=== PATIENT | female | born 1950 | race Asian ===

== ENCOUNTER → 2017-12-16 | Outpatient (CLI) | payer BC | END | disposition home or self-care (01) | LOC: MAMMO 12-14 06:58 | PROVIDERS: ATTEND Obstetrics & Gynecology | DX: Z12.31 Encounter for screening mammogram for malignant neoplasm of breast (principal); R92.1 Mammographic calcification found on diagnostic imaging of breast | CPT/HCPCS: 77067 ==

== ENCOUNTER → 2018-12-20 | Outpatient (CLI) | payer BC | END | disposition home or self-care (01) | LOC: MAMMO 07:25 | PROVIDERS: ATTEND Obstetrics & Gynecology | DX: Z12.31 Encounter for screening mammogram for malignant neoplasm of breast (principal) | CPT/HCPCS: 77067 ==

== ENCOUNTER → 2019-01-18 | Outpatient (CLI) | payer BC ==
[2019-01-18 10:17] LABS: EOSINOPHILS % 4.1 % (0.0-5.0); HEMOGLOBIN. 13.1 g/dL (12.0-16.0); MEAN CORPUSCULAR HEMOGLOBIN 30.1 pg (28.0-32.0); MEAN CORPUSCULAR VOLUME 89.8 fL (81.0-99.0); MEAN PLATELET VOLUME 7.9 fl (7.4-10.4); MONOCYTES % 7.9 % (2.0-8.0); PLATELET 180 x1000/uL (130-400); RED BLOOD CELL COUNT 4.34 mill/uL (4.2-5.4); RED CELL DISTRIBUTION WIDTH 13.8 % (11.6-14.6)
[2019-01-18 10:26] LABS: CHLORIDE 107 mEq/L (98-107)
[2019-01-18 10:33] LABS: LDL CHOLESTEROL 50 mg/dL (5-100)
[2019-01-18 10:34] LABS: HDL CHOLESTEROL 62 mg/dL (40-59)
== END | disposition home or self-care (01) ==
LOC: LAB 09:44
PROVIDERS: ATTEND Internal Medicine
DX: E78.00 Pure hypercholesterolemia, unspecified (principal); I10 Essential (primary) hypertension; R73.03 Prediabetes; M25.561 Pain in right knee
CPT/HCPCS: 36415; 82465; 83036; 83718; 83721; 84478

== ENCOUNTER → 2019-06-21 | Outpatient (CLI) | payer BC ==
[2019-06-21 10:25] LABS: BASOPHILS % 1.5 % (0.0-2.0); EOSINOPHILS % 3.3 % (0.0-5.0); HEMATOCRIT. 39.9 % (36.0-48.0); HEMOGLOBIN. 13.3 g/dL (12.0-16.0); LYMPHOCYTES % 23.2 % (20.0-50.0); MEAN CORPUSCULAR VOLUME 89.9 fL (81.0-99.0); MEAN PLATELET VOLUME 7.7 fl (7.4-10.4); MONOCYTES % 7.8 % (2.0-8.0); NEUTROPHILS % 64.2 % (40.0-76.0); PLATELET 191 x1000/uL (130-400); RED BLOOD CELL COUNT 4.43 mill/uL (4.2-5.4); RED CELL DISTRIBUTION WIDTH 14.2 % (11.6-14.6)
[2019-06-21 10:33] LABS: CHLORIDE 106 mEq/L (98-107)
[2019-06-21 10:42] LABS: LDL CHOLESTEROL 58 mg/dL (5-100)
[2019-06-21 10:44] LABS: HDL CHOLESTEROL 73 mg/dL (40-59)
== END | disposition home or self-care (01) ==
LOC: LAB 09:50
PROVIDERS: ATTEND Internal Medicine
DX: I10 Essential (primary) hypertension (principal); E78.00 Pure hypercholesterolemia, unspecified; R73.03 Prediabetes; M25.562 Pain in left knee
CPT/HCPCS: 36415; 80053; 80061; 83036; 83735; 85025

== ENCOUNTER → 2019-10-13 | Outpatient (CLI) | payer OTHER | END | disposition home or self-care (01) | LOC: MRI 07:02 | PROVIDERS: ATTEND Family Medicine Adult Medicine | DX: S63.8X2A Sprain of other part of left wrist and hand, initial encounter (principal); M18.9 Osteoarthritis of first carpometacarpal joint, unspecified; M94.232 Chondromalacia, left wrist; M25.432 Effusion, left wrist; X58.XXXA Exposure to other specified factors, initial encounter; Y93.89 Activity, other specified; Y92.89 Other specified places as the place of occurrence of the external cause; Y99.8 Other external cause status | CPT/HCPCS: 73221 ==

== ENCOUNTER → 2019-11-23 | Outpatient (CLI) | payer BC ==
[2019-11-23 08:41] LABS: BASOPHILS % 1.1 % (0.0-2.0); EOSINOPHILS % 2.5 % (0.0-5.0); HEMATOCRIT. 37.4 % (36.0-48.0); HEMOGLOBIN. 12.5 g/dL (12.0-16.0); LYMPHOCYTES % 20.4 % (20.0-50.0); MEAN CORPUSCULAR HEMOGLOBIN 30.1 pg (28.0-32.0); MEAN CORPUSCULAR VOLUME 90.2 fL (81.0-99.0); MEAN PLATELET VOLUME 7.3 fl (7.4-10.4); MONOCYTES % 7.4 % (2.0-8.0); NEUTROPHILS % 68.6 % (40.0-76.0); PLATELET 176 x1000/uL (130-400); RED BLOOD CELL COUNT 4.15 mill/uL (4.2-5.4)
[2019-11-23 08:57] LABS: CHLORIDE 111 mEq/L (98-107)
[2019-11-23 09:04] LABS: LDL CHOLESTEROL 60 mg/dL (5-100)
[2019-11-23 09:05] LABS: HDL CHOLESTEROL 71 mg/dL (40-59)
== END | disposition home or self-care (01) ==
LOC: LAB 08:07
PROVIDERS: ATTEND Internal Medicine
DX: E78.00 Pure hypercholesterolemia, unspecified (principal); M25.561 Pain in right knee; M25.562 Pain in left knee; R73.03 Prediabetes
CPT/HCPCS: 36415; 80053; 80061; 83036; 85025

== ENCOUNTER → 2020-01-10 | Outpatient (CLI) | payer BC | END | disposition home or self-care (01) | LOC: LAB 08:06 | PROVIDERS: ATTEND Obstetrics & Gynecology | DX: Z20.828 Contact with and (suspected) exposure to other viral communicable diseases (principal) | CPT/HCPCS: C9803; U0003 ==

== ENCOUNTER → 2020-01-12 | Outpatient (CLI) | payer BC | END | disposition home or self-care (01) | LOC: MAMMO 06:40 | PROVIDERS: ATTEND Obstetrics & Gynecology | DX: Z12.31 Encounter for screening mammogram for malignant neoplasm of breast (principal) | CPT/HCPCS: 77067 ==

== ENCOUNTER → 2020-04-10 | Outpatient (CLI) | payer BC ==
[2020-04-10 10:38] LABS: BASOPHILS % 1.2 % (0.0-2.0); HEMATOCRIT. 38.3 % (36.0-48.0); HEMOGLOBIN. 12.6 g/dL (12.0-16.0); LYMPHOCYTES % 20.1 % (20.0-50.0); MEAN CORPUSCULAR HEMOGLOBIN 29.7 pg (28.0-32.0); MEAN CORPUSCULAR VOLUME 89.9 fL (81.0-99.0); MEAN PLATELET VOLUME 7.7 fl (7.4-10.4); MONOCYTES % 7.2 % (2.0-8.0); NEUTROPHILS % 68.5 % (40.0-76.0); PLATELET 180 x1000/uL (130-400); RED BLOOD CELL COUNT 4.26 mill/uL (4.2-5.4)
[2020-04-10 11:03] LABS: CHLORIDE 106 mEq/L (98-107)
[2020-04-10 11:10] LABS: LDL CHOLESTEROL 56 mg/dL (5-100)
[2020-04-10 11:12] LABS: HDL CHOLESTEROL 75 mg/dL (40-59)
== END | disposition home or self-care (01) ==
LOC: LAB 10:11
PROVIDERS: ATTEND Internal Medicine
DX: I10 Essential (primary) hypertension (principal); R73.03 Prediabetes; M25.561 Pain in right knee
CPT/HCPCS: 36415; 80053; 80061; 83036; 85025

== ENCOUNTER → 2020-10-09 | Outpatient (CLI) | payer BC ==
[2020-10-09 10:36] LABS: BASOPHILS % 1.2 % (0.0-2.0); EOSINOPHILS % 5.1 % (0.0-5.0); HEMATOCRIT. 37.7 % (36.0-48.0); HEMOGLOBIN. 12.8 g/dL (12.0-16.0); LYMPHOCYTES % 20.4 % (20.0-50.0); MEAN CORPUSCULAR HEMOGLOBIN 30.4 pg (28.0-32.0); MEAN CORPUSCULAR VOLUME 89.4 fL (81.0-99.0); MEAN PLATELET VOLUME 7.8 fl (7.4-10.4); MONOCYTES % 7.1 % (2.0-8.0); NEUTROPHILS % 66.2 % (40.0-76.0); PLATELET 184 x1000/uL (130-400); RED BLOOD CELL COUNT 4.22 mill/uL (4.2-5.4); RED CELL DISTRIBUTION WIDTH 14.2 % (11.6-14.6)
[2020-10-09 10:37] LABS: CHLORIDE 106 mEq/L (98-107)
[2020-10-09 10:45] LABS: LDL CHOLESTEROL 66 mg/dL (5-100)
[2020-10-09 10:46] LABS: HDL CHOLESTEROL 68 mg/dL (40-59)
== END | disposition home or self-care (01) ==
LOC: LAB 10:07
PROVIDERS: ATTEND Internal Medicine
DX: E78.00 Pure hypercholesterolemia, unspecified (principal); R73.03 Prediabetes; M25.561 Pain in right knee; M25.562 Pain in left knee
CPT/HCPCS: 36415; 80053; 80061; 83036; 85025

== ENCOUNTER → 2021-01-15 | Outpatient (CLI) | payer BC | END | disposition home or self-care (01) | LOC: MAMMO 07:30 | PROVIDERS: ATTEND Obstetrics & Gynecology | DX: Z12.31 Encounter for screening mammogram for malignant neoplasm of breast (principal) | CPT/HCPCS: 77067 ==

== ENCOUNTER → 2021-04-30 | Outpatient (CLI) | payer BC ==
[2021-04-30 11:02] LABS: BASOPHILS % 1.4 % (0.0-2.0); EOSINOPHILS % 6.3 % (0.0-5.0); HEMATOCRIT. 37.4 % (36.0-48.0); HEMOGLOBIN. 12.5 g/dL (12.0-16.0); LYMPHOCYTES % 18.9 % (20.0-50.0); MEAN CORPUSCULAR HEMOGLOBIN 29.9 pg (28.0-32.0); MEAN CORPUSCULAR VOLUME 89.2 fL (81.0-99.0); MEAN PLATELET VOLUME 7.9 fl (7.4-10.4); MONOCYTES % 6.5 % (2.0-8.0); NEUTROPHILS % 66.9 % (40.0-76.0); PLATELET 209 x1000/uL (130-400); RED BLOOD CELL COUNT 4.19 mill/uL (4.2-5.4); RED CELL DISTRIBUTION WIDTH 14.7 % (11.6-14.6)
[2021-04-30 11:23] LABS: CHLORIDE 106 mEq/L (98-107)
[2021-04-30 11:30] LABS: LDL CHOLESTEROL 59 mg/dL (5-100)
[2021-04-30 11:31] LABS: HDL CHOLESTEROL 65 mg/dL (40-59)
== END | disposition home or self-care (01) ==
LOC: LAB 10:28
PROVIDERS: ATTEND Internal Medicine
DX: E78.00 Pure hypercholesterolemia, unspecified (principal); R73.03 Prediabetes; M25.561 Pain in right knee; M25.562 Pain in left knee
CPT/HCPCS: 36415; 80053; 80061; 83036; 85025

== ENCOUNTER → 2021-10-29 | Outpatient (CLI) | payer BC ==
[2021-10-29 09:56] LABS: BASOPHILS % 1.3 % (0.0-2.0); EOSINOPHILS % 5.4 % (0.0-5.0); HEMATOCRIT. 39.4 % (36.0-48.0); HEMOGLOBIN. 13.2 g/dL (12.0-16.0); LYMPHOCYTES % 22.3 % (20.0-50.0); MEAN CORPUSCULAR HEMOGLOBIN 30.2 pg (28.0-32.0); MONOCYTES % 8.8 % (2.0-8.0); NEUTROPHILS % 62.2 % (40.0-76.0); PLATELET 202 x1000/uL (130-400); RED BLOOD CELL COUNT 4.38 mill/uL (4.2-5.4); RED CELL DISTRIBUTION WIDTH 14.3 % (11.6-14.6)
[2021-10-29 10:03] LABS: CHLORIDE 103 mEq/L (98-107)
[2021-10-29 10:12] LABS: HDL CHOLESTEROL 57 mg/dL (40-59); LDL CHOLESTEROL 61 mg/dL (5-100)
== END | disposition home or self-care (01) ==
LOC: LAB 09:30
PROVIDERS: ATTEND Internal Medicine
DX: I10 Essential (primary) hypertension (principal); E78.00 Pure hypercholesterolemia, unspecified; R73.03 Prediabetes; M25.562 Pain in left knee; M25.561 Pain in right knee
CPT/HCPCS: 36415; 80053; 80061; 83036; 85025

== ENCOUNTER → 2021-12-26 | Outpatient (CLI) | payer BC, MEDICARE | END | disposition home or self-care (01) | LOC: CARD 12:16 | PROVIDERS: ATTEND Internal Medicine | DX: Z01.818 Encounter for other preprocedural examination (principal); I10 Essential (primary) hypertension; E66.01 Morbid (severe) obesity due to excess calories | CPT/HCPCS: 93005 ==

== ENCOUNTER → 2022-03-12 | Outpatient (CLI) | payer BC, MEDICARE | END | disposition home or self-care (01) | LOC: MAMMO 06:27 | PROVIDERS: ATTEND Obstetrics & Gynecology | DX: Z12.31 Encounter for screening mammogram for malignant neoplasm of breast (principal) | CPT/HCPCS: 77067 ==

== ENCOUNTER → 2022-06-18 | Outpatient (CLI) | payer BC ==
[2022-06-18 06:48] LABS: CHLORIDE 107 mEq/L (98-107)
[2022-06-18 06:49] LABS: BASOPHILS % 1.4 % (0.0-2.0); LYMPHOCYTES % 25.4 % (20.0-50.0); MEAN CORPUSCULAR HEMOGLOBIN 29.4 pg (28.0-32.0); MEAN CORPUSCULAR VOLUME 88.3 fL (81.0-99.0); MONOCYTES % 7.2 % (2.0-8.0); PLATELET 225 x1000/uL (130-400); RED BLOOD CELL COUNT 4.41 mill/uL (4.2-5.4); RED CELL DISTRIBUTION WIDTH 14.6 % (11.6-14.6)
[2022-06-18 06:54] LABS: HDL CHOLESTEROL 64 mg/dL (40-59); LDL CHOLESTEROL 57 mg/dL (5-100)
== END | disposition home or self-care (01) ==
LOC: LAB 05:58
PROVIDERS: ATTEND Internal Medicine
DX: I10 Essential (primary) hypertension (principal); E78.00 Pure hypercholesterolemia, unspecified; E11.9 Type 2 diabetes mellitus without complications
CPT/HCPCS: 36415; 80053; 80061; 83036; 85025

== ENCOUNTER → 2023-03-12 | Outpatient (CLI) | payer BC ==
[2023-03-12 07:22] LABS: BASOPHILS % 1.1 % (0.0-2.0); EOSINOPHILS % 8.2 % (0.0-5.0); HEMATOCRIT. 38.9 % (36.0-48.0); HEMOGLOBIN. 13.2 g/dL (12.0-16.0); LYMPHOCYTES % 24.6 % (20.0-50.0); MEAN CORPUSCULAR HEMOGLOBIN 30.6 pg (28.0-32.0); MEAN CORPUSCULAR HGB CONC 33.8 g/dL (31.0-37.0); MEAN CORPUSCULAR VOLUME 90.5 fL (81.0-99.0); MEAN PLATELET VOLUME 8.3 fl (7.4-10.4); MONOCYTES % 7.3 % (2.0-8.0); NEUTROPHILS % 58.8 % (40.0-76.0); PLATELET 202 x1000/uL (130-400); RED CELL DISTRIBUTION WIDTH 14.3 % (11.6-14.6); WHITE BLOOD COUNT 8.1 x1000/uL (4.5-11.0)
[2023-03-12 07:59] LABS: ALANINE AMINOTRANSFERASE 19 IU/L (10-49); ALBUMIN 4.3 g/dL (3.2-4.8); ASPARTATE AMINOTRANSFERASE 14 IU/L (<34); BILIRUBIN TOTAL 0.4 mg/dL (0.1-1.0); CARBON DIOXIDE 24 mEq/L (21-32); CHLORIDE 106 mEq/L (98-107); CHOLESTEROL 108 mg/dL (<200); CREATININE 1.7 mg/dL (0.6-1.0); GLUCOSE 96 mg/dL (70-105); HDL CHOLESTEROL 53 mg/dL (>65); LDL CHOLESTEROL 50 mg/dL (5-100); POTASSIUM 4.6 mEq/L (3.5-5.1); PROTEIN TOTAL 7.2 g/dL (6.0-8.3); SODIUM 141 mEq/L (136-145); TRIGLYCERIDE 201 mg/dL (0-150); UREA NITROGEN BLOOD 17 mg/dL (9-23)
== END | disposition home or self-care (01) ==
LOC: LAB 06:30
PROVIDERS: ATTEND Internal Medicine
DX: I10 Essential (primary) hypertension (principal); E78.00 Pure hypercholesterolemia, unspecified; E11.9 Type 2 diabetes mellitus without complications
CPT/HCPCS: 36415; 80053; 80061; 83036; 85025

== ENCOUNTER → 2023-03-17 | Outpatient (CLI) | payer BC | END | disposition home or self-care (01) | LOC: MAMMO 06:31 | PROVIDERS: ATTEND Obstetrics & Gynecology | DX: Z12.31 Encounter for screening mammogram for malignant neoplasm of breast (principal); Z13.820 Encounter for screening for osteoporosis; M81.0 Age-related osteoporosis without current pathological fracture | CPT/HCPCS: 77067; 77080 ==

== ENCOUNTER → 2023-03-17 | Outpatient (CLI) | payer OTHER | END | disposition home or self-care (01) | LOC: MRI 06:15 | DX: M51.37 Other intervertebral disc degeneration, lumbosacral region (principal); M48.07 Spinal stenosis, lumbosacral region; M51.27 Other intervertebral disc displacement, lumbosacral region; M24.28 Disorder of ligament, vertebrae | CPT/HCPCS: 72148 ==

== ENCOUNTER → 2023-04-30 | Outpatient (CLI) | payer OTHER | END | disposition home or self-care (01) | LOC: RAD 08:54 | PROVIDERS: ATTEND Orthopaedic Surgery | DX: M51.37 Other intervertebral disc degeneration, lumbosacral region (principal); M47.817 Spondylosis without myelopathy or radiculopathy, lumbosacral region; M85.88 Other specified disorders of bone density and structure, other site | CPT/HCPCS: 72114 ==

== ENCOUNTER → 2023-05-21 | Outpatient (CLI) | payer BC ==
[2023-05-21 08:09] LABS: CHOLESTEROL 148 mg/dL (<200); HDL CHOLESTEROL 60 mg/dL (>65); LDL CHOLESTEROL 55 mg/dL (5-100); PHOSPHORUS 3.8 mg/dL (2.5-4.9); TRIGLYCERIDE 176 mg/dL (0-150)
[2023-05-21 08:18] LABS: EOSINOPHILS % 5.8 % (0.0-5.0); HEMATOCRIT. 37.9 % (36.0-48.0); HEMOGLOBIN. 12.6 g/dL (12.0-16.0); LYMPHOCYTES % 21.4 % (20.0-50.0); MEAN CORPUSCULAR HEMOGLOBIN 29.6 pg (28.0-32.0); MEAN CORPUSCULAR HGB CONC 33.2 g/dL (31.0-37.0); MEAN CORPUSCULAR VOLUME 89.2 fL (81.0-99.0); MEAN PLATELET VOLUME 8.3 fl (7.4-10.4); MONOCYTES % 6.4 % (2.0-8.0); NEUTROPHILS % 65.4 % (40.0-76.0); PLATELET 183 x1000/uL (130-400); RED BLOOD CELL COUNT 4.25 mill/uL (4.2-5.4); RED CELL DISTRIBUTION WIDTH 13.7 % (11.6-14.6); WHITE BLOOD COUNT 6.2 x1000/uL (4.5-11.0)
[2023-05-21 08:43] LABS: CLARITY URINE CLEAR (CLEAR); COLOR URINE YELLOW (YELLOW); GLUCOSE URINE NEGATIVE (NEGATIVE); KETONES URINE NEGATIVE (NEGATIVE); LEUKOCYTE ESTERASE URINE 2+ (NEGATIVE); NITRITE URINE NEGATIVE (NEGATIVE); OCCULT BLOOD URINE NEGATIVE (NEGATIVE); PH URINE 5.5 (4.5-8.0); PROTEIN URINE NEGATIVE (NEGATIVE); SPECIFIC GRAVITY URINE 1.015 (1.005-1.030); UROBILINOGEN URINE 0.2 E.U./dL (0.2-1.0)
[2023-05-21 08:57] LABS: BACTERIA URINE 1+
[2023-05-21 08:59] LABS: RBC URINE 0-2 /hpf (0-2); SQUAMOUS EPITHELIAL CELL URINE NONE SEEN /lpf (RARE/1+); YEAST URINE NONE SEEN
[2023-05-21 11:56] LABS: ERYTHROCYTE SEDIMENTATION RATE 25 mm/hr (0-30)
[2023-05-22 09:07] LABS: HBSAG SCREEN Negative (Negative); VITAMIN D 25-OH 57.1 ng/mL (30.0-100.0)
[2023-05-22 10:08] LABS: A/G RATIO 0.9 (0.7-1.7); ALBUMIN 3.3 g/dL (2.9-4.4); ALPHA-1-GLOBULIN 0.3 g/dL (0.0-0.4); ALPHA-2-GLOBULIN 0.9 g/dL (0.4-1.0); BETA GLOBULIN 1.1 g/dL (0.7-1.3); GAMMA GLOBULINS 1.3 g/dL (0.4-1.8); GLOBULIN TOTAL 3.6 g/dL (2.2-3.9); M-SPIKE Not Observed g/dL (Not Observed); TOTAL PROTEIN SERUM 6.9 g/dL (6.0-8.5)
[2023-05-23 14:12] LABS: *CREATININE RANDOM URINE 73.6 mg/dL (Not Estab.); MICROALBUMIN RANDOM URINE 11.9 ug/mL (Not Estab.)
== END | disposition home or self-care (01) ==
LOC: LAB 06:28
PROVIDERS: ATTEND Internal Medicine Nephrology
DX: E11.9 Type 2 diabetes mellitus without complications (principal); I10 Essential (primary) hypertension; E78.2 Mixed hyperlipidemia; E03.9 Hypothyroidism, unspecified
CPT/HCPCS: 36415; 80061; 81003; 82043; 82306; 82570; 83735; 83970; 84100; 84155; 84165; 85025; 85651; 86141; 86705; 87340

== ENCOUNTER → 2023-06-05 | Outpatient (CLI) | payer BC | END | disposition home or self-care (01) | LOC: US 06:36 | PROVIDERS: ATTEND Internal Medicine Nephrology | DX: N28.1 Cyst of kidney, acquired (principal); N18.1 Chronic kidney disease, stage 1 | CPT/HCPCS: 76770 ==

== ENCOUNTER → 2023-07-31 | Outpatient (CLI) | payer BC ==
[2023-07-31 07:06] LABS: BASOPHILS % 1.4 % (0.0-2.0); EOSINOPHILS % 7.3 % (0.0-5.0); HEMATOCRIT. 38.4 % (36.0-48.0); HEMOGLOBIN. 12.9 g/dL (12.0-16.0); LYMPHOCYTES % 21.9 % (20.0-50.0); MEAN CORPUSCULAR HEMOGLOBIN 29.9 pg (28.0-32.0); MEAN CORPUSCULAR HGB CONC 33.6 g/dL (31.0-37.0); MEAN CORPUSCULAR VOLUME 88.9 fL (81.0-99.0); NEUTROPHILS % 61.4 % (40.0-76.0); PLATELET 180 x1000/uL (130-400); RED BLOOD CELL COUNT 4.32 mill/uL (4.2-5.4); RED CELL DISTRIBUTION WIDTH 14.1 % (11.6-14.6); WHITE BLOOD COUNT 6.8 x1000/uL (4.5-11.0)
[2023-07-31 07:09] LABS: CLARITY URINE CLEAR (CLEAR); COLOR URINE YELLOW (YELLOW); GLUCOSE URINE NEGATIVE (NEGATIVE); KETONES URINE NEGATIVE (NEGATIVE); LEUKOCYTE ESTERASE URINE 1+ (NEGATIVE); NITRITE URINE NEGATIVE (NEGATIVE); OCCULT BLOOD URINE NEGATIVE (NEGATIVE); PH URINE 5.5 (4.5-8.0); PROTEIN URINE NEGATIVE (NEGATIVE); SPECIFIC GRAVITY URINE 1.016 (1.005-1.030); UROBILINOGEN URINE 0.2 E.U./dL (0.2-1.0)
[2023-07-31 07:31] LABS: BACTERIA URINE 1+; RBC URINE 0-2 /hpf (0-2); SQUAMOUS EPITHELIAL CELL URINE RARE /lpf (RARE/1+); WBC URINE 15-25 /hpf (0-2); YEAST URINE NONE SEEN
[2023-07-31 07:38] LABS: INR 0.9; PARTIAL THROMBOPLASTIN TIME 25.5 sec (23.4-31.0); PROTHROMBIN TIME 10.3 sec (9.6-11.0)
[2023-07-31 07:40] LABS: ALANINE AMINOTRANSFERASE 17 IU/L (10-49); ALBUMIN 4.6 g/dL (3.2-4.8); ASPARTATE AMINOTRANSFERASE 19 IU/L (<34); BILIRUBIN TOTAL 0.5 mg/dL (0.1-1.0); CALCIUM 9.9 mg/dL (8.7-10.4); CARBON DIOXIDE 24 mEq/L (21-32); CHLORIDE 104 mEq/L (98-107); CREATININE 1.2 mg/dL (0.6-1.0); GLUCOSE 118 mg/dL (70-105); POTASSIUM 4.5 mEq/L (3.5-5.1); PROTEIN TOTAL 7.4 g/dL (6.0-8.3); SODIUM 138 mEq/L (136-145); UREA NITROGEN BLOOD 24 mg/dL (9-23)
== END | disposition home or self-care (01) ==
LOC: RAD 06:23
PROVIDERS: ATTEND Orthopaedic Surgery
DX: Z01.818 Encounter for other preprocedural examination (principal)
CPT/HCPCS: 36415; 71046; 80053; 81003; 85025; 87077; 87186; 93005

== ENCOUNTER → 2023-08-31 | Outpatient (CLI) | payer BC | END | disposition home or self-care (01) | LOC: RAD 06:11 | PROVIDERS: ATTEND Specialist | DX: Z01.810 Encounter for preprocedural cardiovascular examination (principal) | CPT/HCPCS: 93306 ==

== ENCOUNTER → 2023-09-17 | Outpatient (CLI) | payer BC ==
[~2023-09-17] MED LIST: REGADENOSON 0.4 MG/5 ML IV ONE
== END | disposition home or self-care (01) ==
LOC: NM 07:17
PROVIDERS: ATTEND Specialist
DX: I10 Essential (primary) hypertension (principal); R07.89 Other chest pain
CPT/HCPCS: 78452; 93017; J2785; A9500

== ENCOUNTER → 2023-10-20 | Outpatient (CLI) | payer BC ==
[2023-10-20 07:17] LABS: CHLORIDE 103 mEq/L (98-107); POTASSIUM 3.9 mEq/L (3.5-5.1); SODIUM 138 mEq/L (136-145)
[2023-10-20 07:18] LABS: CARBON DIOXIDE 22 mEq/L (21-32)
[2023-10-20 07:19] LABS: CALCIUM 10.6 mg/dL (8.7-10.4)
[2023-10-20 07:23] LABS: CREATININE 1.2 mg/dL (0.6-1.0); GLUCOSE 103 mg/dL (70-105)
[2023-10-20 07:24] LABS: LDL CHOLESTEROL 35 mg/dL (5-100); TRIGLYCERIDE 106 mg/dL (0-150); UREA NITROGEN BLOOD 23 mg/dL (9-23)
[2023-10-20 07:25] LABS: ALANINE AMINOTRANSFERASE 23 IU/L (10-49); ALBUMIN 4.7 g/dL (3.2-4.8); ASPARTATE AMINOTRANSFERASE 19 IU/L (<34); CHOLESTEROL 116 mg/dL (<200); HDL CHOLESTEROL 59 mg/dL (>65)
[2023-10-20 07:26] LABS: BILIRUBIN TOTAL 0.5 mg/dL (0.1-1.0); PROTEIN TOTAL 8.1 g/dL (6.0-8.3)
[2023-10-20 11:38] LABS: CLARITY URINE CLEAR (CLEAR); COLOR URINE YELLOW (YELLOW); GLUCOSE URINE NEGATIVE (NEGATIVE); KETONES URINE NEGATIVE (NEGATIVE); LEUKOCYTE ESTERASE URINE 1+ (NEGATIVE); NITRITE URINE NEGATIVE (NEGATIVE); OCCULT BLOOD URINE NEGATIVE (NEGATIVE); PH URINE 5.5 (4.5-8.0); PROTEIN URINE NEGATIVE (NEGATIVE); SPECIFIC GRAVITY URINE 1.016 (1.005-1.030); UROBILINOGEN URINE 0.2 E.U./dL (0.2-1.0)
[2023-10-20 12:17] LABS: SQUAMOUS EPITHELIAL CELL URINE FEW /lpf (RARE/1+)
[2023-10-20 12:18] LABS: BACTERIA URINE TRACE
[2023-10-20 12:24] LABS: RBC URINE NONE SEEN /hpf (0-2); WBC URINE 0-2 /hpf (0-2)
== END | disposition home or self-care (01) ==
LOC: LAB 06:11
PROVIDERS: ATTEND Internal Medicine Nephrology
DX: I12.9 Hypertensive chronic kidney disease with stage 1 through stage 4 chronic kidney disease, or unspecified chronic kidney disease (principal); E11.22 Type 2 diabetes mellitus with diabetic chronic kidney disease; N18.30 Chronic kidney disease, stage 3 unspecified; E78.2 Mixed hyperlipidemia
CPT/HCPCS: 36415; 80053; 80061; 81003; 82306; 83036; 83970

== ENCOUNTER → 2023-11-20 | Outpatient (CLI) | payer OTHER | END | disposition home or self-care (01) | LOC: RAD 07:06 | DX: S33.140A Subluxation of L4/L5 lumbar vertebra, initial encounter (principal); M48.062 Spinal stenosis, lumbar region with neurogenic claudication; X58.XXXA Exposure to other specified factors, initial encounter; Y93.89 Activity, other specified; Y92.89 Other specified places as the place of occurrence of the external cause; Y99.8 Other external cause status | CPT/HCPCS: 72114 ==

== ENCOUNTER → 2024-01-28 | Outpatient (CLI) | payer OTHER | END | disposition home or self-care (01) | LOC: RAD 07:38 | PROVIDERS: ATTEND Orthopaedic Surgery | DX: M47.816 Spondylosis without myelopathy or radiculopathy, lumbar region (principal); M43.16 Spondylolisthesis, lumbar region | CPT/HCPCS: 72100 ==

== ENCOUNTER → 2024-03-22 | Outpatient (CLI) | payer BC | END | disposition home or self-care (01) | LOC: MAMMO 06:22 | PROVIDERS: ATTEND Obstetrics & Gynecology | DX: Z12.31 Encounter for screening mammogram for malignant neoplasm of breast (principal) | CPT/HCPCS: 77063; 77067 ==

== ENCOUNTER → 2024-03-28 | Outpatient (CLI) | payer BC ==
[2024-03-28 08:29] LABS: BASOPHILS % 2.3 % (0.0-2.0); EOSINOPHILS % 3.3 % (0.0-5.0); HEMATOCRIT. 43.5 % (36.0-48.0); HEMOGLOBIN. 14.2 g/dL (12.0-16.0); LYMPHOCYTES % 25.1 % (20.0-50.0); MEAN CORPUSCULAR HEMOGLOBIN 29.3 pg (28.0-32.0); MEAN CORPUSCULAR HGB CONC 32.5 g/dL (31.0-37.0); MEAN PLATELET VOLUME 8.3 fl (7.4-10.4); MONOCYTES % 7.3 % (2.0-8.0); PLATELET 210 x1000/uL (130-400); RED BLOOD CELL COUNT 4.83 mill/uL (4.2-5.4); RED CELL DISTRIBUTION WIDTH 14.5 % (11.6-14.6); WHITE BLOOD COUNT 6.8 x1000/uL (4.5-11.0)
[2024-03-28 08:38] LABS: CARBON DIOXIDE 25 mEq/L (21-32); CHLORIDE 103 mEq/L (98-107); POTASSIUM 4.6 mEq/L (3.5-5.1); SODIUM 137 mEq/L (136-145)
[2024-03-28 08:39] LABS: CALCIUM 10.7 mg/dL (8.7-10.4)
[2024-03-28 08:43] LABS: CREATININE 1.2 mg/dL (0.6-1.0); GLUCOSE 95 mg/dL (70-105)
[2024-03-28 08:44] LABS: LDL CHOLESTEROL 40 mg/dL (5-100); TRIGLYCERIDE 160 mg/dL (0-150); UREA NITROGEN BLOOD 18 mg/dL (9-23)
[2024-03-28 08:45] LABS: ALANINE AMINOTRANSFERASE 16 IU/L (10-49); ALBUMIN 4.7 g/dL (3.2-4.8); ASPARTATE AMINOTRANSFERASE 18 IU/L (<34); CHOLESTEROL 127 mg/dL (<200)
[2024-03-28 08:46] LABS: BILIRUBIN TOTAL 0.6 mg/dL (0.1-1.0); HDL CHOLESTEROL 54 mg/dL (>65); PROTEIN TOTAL 7.8 g/dL (6.0-8.3)
[2024-03-28 08:47] LABS: THYROID STIMULATING HORMONE 3.06 uIU/mL (0.55-4.78)
== END | disposition home or self-care (01) ==
LOC: LAB 07:07
PROVIDERS: ATTEND Specialist
DX: E78.5 Hyperlipidemia, unspecified (principal); E11.00 Type 2 diabetes mellitus with hyperosmolarity without nonketotic hyperglycemic-hyperosmolar coma (NKHHC)
CPT/HCPCS: 36415; 80053; 80061; 82306; 83036; 83735; 83880; 84439; 84443; 84481; 85025

== ENCOUNTER → 2024-06-02 | Outpatient (CLI) | payer BC | END | disposition home or self-care (01) | LOC: US 07:06 | PROVIDERS: ATTEND Internal Medicine Geriatric Medicine | DX: L98.8 Other specified disorders of the skin and subcutaneous tissue (principal); R22.1 Localized swelling, mass and lump, neck | CPT/HCPCS: 76536; 76705 ==

== ENCOUNTER → 2024-06-02 | Outpatient (CLI) | payer BC ==
[2024-06-02 07:49] LABS: CHLORIDE 107 mEq/L (98-107); POTASSIUM 4.3 mEq/L (3.5-5.1); SODIUM 139 mEq/L (136-145)
[2024-06-02 07:51] LABS: CALCIUM 9.8 mg/dL (8.7-10.4); CARBON DIOXIDE 24 mEq/L (21-32)
[2024-06-02 07:56] LABS: CREATININE 1.1 mg/dL (0.6-1.0); GLUCOSE 104 mg/dL (70-105); TRIGLYCERIDE 197 mg/dL (0-150); UREA NITROGEN BLOOD 19 mg/dL (9-23)
[2024-06-02 07:57] LABS: LDL CHOLESTEROL 57 mg/dL (5-100)
[2024-06-02 07:58] LABS: ALANINE AMINOTRANSFERASE 15 IU/L (10-49); ALBUMIN 4.2 g/dL (3.2-4.8); ASPARTATE AMINOTRANSFERASE 14 IU/L (<34); CHOLESTEROL 155 mg/dL (<200); HDL CHOLESTEROL 63 mg/dL (>65)
[2024-06-02 07:59] LABS: BILIRUBIN TOTAL 0.5 mg/dL (0.1-1.0)
[2024-06-02 08:19] LABS: CLARITY URINE CLEAR (CLEAR); COLOR URINE YELLOW (YELLOW); GLUCOSE URINE NEGATIVE (NEGATIVE); KETONES URINE NEGATIVE (NEGATIVE); LEUKOCYTE ESTERASE URINE 2+ (NEGATIVE); NITRITE URINE NEGATIVE (NEGATIVE); OCCULT BLOOD URINE NEGATIVE (NEGATIVE); PROTEIN URINE NEGATIVE (NEGATIVE); SPECIFIC GRAVITY URINE 1.016 (1.005-1.030); UROBILINOGEN URINE 0.2 E.U./dL (0.2-1.0)
[2024-06-02 08:34] LABS: BACTERIA URINE 2+; SQUAMOUS EPITHELIAL CELL URINE 1+ /lpf (RARE/1+); YEAST URINE NONE SEEN
[2024-06-02 08:35] LABS: WBC URINE 15-25 /hpf (0-2)
[2024-06-03 13:06] LABS: *CREATININE RANDOM URINE 79.6 mg/dL (Not Estab.)
[2024-06-03 14:09] LABS: MICROALBUMIN RANDOM URINE 9.2 ug/mL (Not Estab.)
== END | disposition home or self-care (01) ==
LOC: LAB 07:15
PROVIDERS: ATTEND Internal Medicine Nephrology
DX: I12.9 Hypertensive chronic kidney disease with stage 1 through stage 4 chronic kidney disease, or unspecified chronic kidney disease (principal); E11.22 Type 2 diabetes mellitus with diabetic chronic kidney disease; N18.30 Chronic kidney disease, stage 3 unspecified; E78.2 Mixed hyperlipidemia
CPT/HCPCS: 36415; 80053; 80061; 81003; 82043; 82306; 82570; 83970

== ENCOUNTER → 2024-06-08 | Day surgery (SDC) | payer BC ==
[~2024-06-08] MED LIST changes: +LIDOCAINE HCL 1% 10 MG/ML 10ML VIAL ONE; -REGADENOSON 0.4 MG/5 ML IV ONE; +SODIUM BICARBONATE 4% 2.4MEQ/5ML VIAL IV ONE
[2024-06-08 07:56] LABS: BASOPHILS % 1.3 % (0.0-2.0); EOSINOPHILS % 4.8 % (0.0-5.0); HEMATOCRIT. 37.8 % (36.0-48.0); HEMOGLOBIN. 12.5 g/dL (12.0-16.0); LYMPHOCYTES % 19.5 % (20.0-50.0); MEAN CORPUSCULAR HEMOGLOBIN 29.7 pg (28.0-32.0); MEAN CORPUSCULAR HGB CONC 33.2 g/dL (31.0-37.0); MEAN CORPUSCULAR VOLUME 89.7 fL (81.0-99.0); MEAN PLATELET VOLUME 8.2 fl (7.4-10.4); MONOCYTES % 7.8 % (2.0-8.0); NEUTROPHILS % 66.6 % (40.0-76.0); PLATELET 185 x1000/uL (130-400); RED BLOOD CELL COUNT 4.22 mill/uL (4.2-5.4); WHITE BLOOD COUNT 5.8 x1000/uL (4.5-11.0)
[2024-06-08 08:02] LABS: CARBON DIOXIDE 27 mEq/L (21-32); CHLORIDE 105 mEq/L (98-107); POTASSIUM 4.6 mEq/L (3.5-5.1); SODIUM 138 mEq/L (136-145)
[2024-06-08 08:03] LABS: CALCIUM 10.2 mg/dL (8.7-10.4)
[2024-06-08 08:08] LABS: CREATININE 1.3 mg/dL (0.6-1.0); GLUCOSE 95 mg/dL (70-105); TRIGLYCERIDE 141 mg/dL (0-150); UREA NITROGEN BLOOD 30 mg/dL (9-23)
[2024-06-08 08:09] LABS: LDL CHOLESTEROL 63 mg/dL (5-100)
[2024-06-08 08:10] LABS: ALANINE AMINOTRANSFERASE 14 IU/L (10-49); ALBUMIN 4.2 g/dL (3.2-4.8); ASPARTATE AMINOTRANSFERASE 16 IU/L (<34); BILIRUBIN TOTAL 0.7 mg/dL (0.1-1.0); CHOLESTEROL 161 mg/dL (<200); HDL CHOLESTEROL 65 mg/dL (>65); PROTEIN TOTAL 7.5 g/dL (6.0-8.3)
[2024-06-08 08:13] LABS: THYROID STIMULATING HORMONE 4.99 uIU/mL (0.55-4.78)
[2024-06-08 10:09] LABS: ERYTHROCYTE SEDIMENTATION RATE 34 mm/hr (0-30)
[2024-06-08 10:16] LABS: CLARITY URINE CLEAR (CLEAR); COLOR URINE YELLOW (YELLOW); GLUCOSE URINE NEGATIVE (NEGATIVE); KETONES URINE NEGATIVE (NEGATIVE); LEUKOCYTE ESTERASE URINE 1+ (NEGATIVE); NITRITE URINE NEGATIVE (NEGATIVE); OCCULT BLOOD URINE NEGATIVE (NEGATIVE); PH URINE 5.5 (4.5-8.0); PROTEIN URINE NEGATIVE (NEGATIVE); SPECIFIC GRAVITY URINE 1.015 (1.005-1.030); UROBILINOGEN URINE 0.2 E.U./dL (0.2-1.0)
[2024-06-08 11:15] LABS: BACTERIA URINE 1+; SQUAMOUS EPITHELIAL CELL URINE RARE /lpf (RARE/1+)
[2024-06-08 11:16] LABS: RBC URINE NONE SEEN /hpf (0-2)
[2024-06-09 13:07] LABS: *CREATININE RANDOM URINE 65.7 mg/dL (Not Estab.); MICROALBUMIN RANDOM URINE 5.9 ug/mL (Not Estab.)
== END | disposition home or self-care (01) ==
LOC: RAD 07:03
PROVIDERS: ATTEND Internal Medicine Geriatric Medicine
DX: K11.8 Other diseases of salivary glands (principal); Z79.899 Other long term (current) drug therapy; Z98.890 Other specified postprocedural states
CPT/HCPCS: 10005; 80061; 86592; 82043; 82570; 80053; 81003; 83036; 84443; 85025; 85651; 36415; 88172; 88173; J2003; J3490; A4663